=== PATIENT | male | born 1945 | race Caucasian/White ===

== ENCOUNTER 2019-01-09 03:48 | Inpatient (IN) | payer MEDICARE, OTHER ==
[2019-01-09] VITALS (15 sets, daily range): BP systolic 82–147; BP diastolic 48–74
[~2019-01-09] VITALS: Ht 185.4 cm; Wt 118.0 kg
--- NOTE | ~2019-01-09 | EKG ---
[place], [place] ELECTROCARDIOGRAM REPORT NAME: SAMIRA FERGUSON UNIT #: [id number] ROOM: [place] [address] DOCTOR: SALONI DRAFT REPORT BIRTHDATE: [birth year] [facility] Test Date: 2019-01-09 Test Time: 04:14:00 Pat Name: SAMIRA FERGUSON Department: Room: [place] [address] Gender: M Life Sciences Manager: JACQUI : 1945 Requested By: JASWANT CONTRERAS Order Number: [id number] Reading MD: Carlos Pettit Measurements Intervals [place] Rate: 108 P: 36 ME: 158 QRS: 6 QRSD: 95 T: 46 QT: 334 QTc: 448 Interpretive Statements Sinus tachycardia Baseline wander in lead(s) V2 Electronically Signed On 01-10-2019 8:52:39 PDT by Carlos Pettit CM:EKGRPT:ELECTROCARDIOGRAM REPORT [id number] JASWANT CONTRERAS MD EPIPHANY DRAFT REPORT JASWANT CONTRERAS MD
[2019-01-09] MEDS ORDERED: NORVASC5 MG PO (04:26)
[2019-01-09] MEDS ORDERED: AZOR 5-20 MG T1 EACH PO (04:26)
[2019-01-09] MEDS ORDERED: METFORMIN HYD1000 MG PO (04:27)
[2019-01-09] MEDS ORDERED: JANUVIA100 MG PO (04:27)
[2019-01-09 04:29] LABS: BASO % 0.2 % (0.0-1.0); HEMATOCRIT 42.3 % (42.0-52.0); LYMPH # 0.6 10*3/uL (1.3-4.4); LYMPH % 3.3 % (27.0-41.0); MEAN CELL VOLUME 91.4 fl (80.0-94.0); MEAN CORPUSCULAR HGB 30.2 pg (27.0-31.0); MEAN CORPUSCULAR HGB CONC 33.1 g/dl (33.0-37.0); MEAN PLATELET VOLUME 9.8 fl (9.6-12.3); MONO # 1.1 10*3/uL (0.1-1.0); NEUT % 89.9 % (47.0-73.0); PLATELET COUNT AUTOMATED 243 10*3/uL (130-400); RED BLOOD COUNT 4.63 10*6/uL (4.50-5.90); WHITE BLOOD COUNT 17.8 10*3/uL (4.8-10.8)
--- NOTE | 2019-01-09 04:30 | NUR ---
BP CYCLING EVERY 15 MINUTES. REMAINS A&O X 4 AND IS FEELING A BIT BETTER SINCE RECEIVING IV FLUIDS. OKAY FOR ICE WATER PER DR BOURGEOIS AND ICE WATER PROVIDED.
[2019-01-09 04:39] LABS: ACT PARTIAL THROMBO TIME 23.6 SECONDS (20.0-32.1)
[2019-01-09 04:44] LABS: ALBUMIN 3.2 gm/dl (3.1-4.5); ALKALINE PHOSPHATASE 105 U/L (45-117); BUN 20 mg/dl (7-24); CHLORIDE 104 mmol/L (98-107); CREATININE 1.38 mg/dL (0.70-1.30); LIPASE 67 U/L (73-393); POTASSIUM 4.7 mmol/L (3.5-5.1); SGOT/AST 15 IU/L (3-35); SGPT/ALT 10 U/L (12-78); SODIUM 137 mmol/L (136-145); TOTAL PROTEIN 6.1 gm/dL (6.4-8.2)
[2019-01-09 04:45] LABS: TROPONIN I < 0.015 ng/ml (<0.045)
--- NOTE | 2019-01-09 04:45 | NUR ---
UNABLE TO PROVIDE URINE AT THIS TIME.
--- NOTE | 2019-01-09 04:46 | NUR ---
CRITICAL LACTIC ACID 3.8, DR BOURGEOIS AWARE
--- NOTE | 2019-01-09 04:49 | NUR ---
REFUSING STRAIGHT CATH FOR URINE.
--- NOTE | 2019-01-09 05:19 | NUR ---
BLADDER SCAN REVEALED 28 ML OF URINE IN BLADDER. DR BOURGEOIS NOTIFIED.
--- NOTE | 2019-01-09 05:21 | NUR ---
RADIOLOGY HERE TO TAKE PATIENT FOR IMAGING BUT ADVISED TO WAIT UNTIL BP STABLE.
--- NOTE | 2019-01-09 05:25 | NUR ---
MANUAL BP RIGHT ARM 82/48. DR BOURGEOIS MADE AWARE ON THRID LITER OF NSS ORDERED.
--- NOTE | 2019-01-09 05:38 | NUR ---
WALLET, CREDIT CARDS, AND MONEY SECURED BY MARIBEL NURSING COAL BRIQUETTE MACHINE OPERATOR AND PLACED IN LOCK BOX PER PATIENT REQUEST. REMAINDER OF BELONGINGS INCLUDING SHORTS, T-SHIRT, A FEW LOOSE NICKELS, KEYS, HOTEL RENDON CARD, KEYS, HAT, AND SHOES PLACED IN BELONGINGS BAG AND LABELED.
--- NOTE | 2019-01-09 05:40 | NUR ---
BP VERIFIED WITH MANUAL AND IS 92/52 IN RIGHT ARM MANUALLY AND 93/55 ON AUTO CUFF.
--- NOTE | 2019-01-09 05:45 | NUR ---
UPDATED RADIOLOGY THAT PATIENT CAN GO FOR CT.
--- NOTE | 2019-01-09 05:47 | NUR ---
LEVOPHED ON STAND BY PER DR BOURGEOIS.
--- NOTE | 2019-01-09 05:55 | NUR ---
IV FLUID ORDER VERIFIED WITH DR BOURGEOIS. PATIENT IS ONLY TO HAVE 3L OF NSS.
--- NOTE | 2019-01-09 05:58 | NUR ---
ESCORTED TO CT VIA STRETCHER.
--- NOTE | 2019-01-09 06:28 | NUR ---
VERBAL ORDER GIVEN TO INFUSE 4TH L OF NSS
--- NOTE | 2019-01-09 06:38 | NUR ---
MARY CASTILLO FROM PHARMACY.
--- NOTE | 2019-01-09 06:40 | NUR ---
UPDATED ON PLAN FOR ADMISSION AND REMAINS AT BASELINE MENTATION. OTHER THAN BP AND IMPROVED HR, ASSESSMENT REMAINS AT BASELINE.
--- NOTE | 2019-01-09 06:41 | NUR ---
STILL UNABLE TO PROVIDE URINE AND IS REFUSING STRAIGHT CATH.
--- NOTE | 2019-01-09 06:49 | NUR ---
UPDATED ON ADMISSION TO ICCU AND DENIES ANY NEEDS.
--- NOTE | 2019-01-09 07:02 | NUR ---
SPOKE WITH WILLIAM IN PHARMACY REGARDING NEED FOR ZOSYN DOSE. WILL SEND.
--- NOTE | 2019-01-09 07:16 | NUR ---
NURSE TO NURSE TO ICU. NURSE TO NURSE GIVEN TO JACK IN ED.
--- NOTE | 2019-01-09 07:20 | NUR ---
REPORT FROM LAKSHMI PATEL. REPORT HAS BEEN CALLED TO THE ICU PER LAKSHMI PATEL. THE PATIENT CAN BE TRANSPORTED TO ICU IONCE ZOSYN ARRIVES FROM PHARMACY AND THIS MEDICATION IS STARTED. AT THIS TIME PT IS SLEEPING RESP EASY AND REGULAR. MONITOR SHOWING SINUS RHYTHM IV INFUSING AT 150/HR. JACK PORTILLO RN.
--- NOTE | 2019-01-09 07:55 | NUR ---
A 73, admitted to ICCU, under the services of DULCE Carpenter DO with a diagnosis of SEVERE SEPSIS AND HTN. Chief complaint is LIGHTHEADED AND DIZZY. Patient arrived via stretcher from ER. Monitor applied. Initial assessment completed. Vital signs taken and recorded. DULCE CARPENTER DO notified of admission to the unit. Orders received. See assessment for past medical history, medications and allergies. Patient and/or family oriented to unit. [facility]U visitation policy reviewed. Clothing/patient valuable form completed. MARGARITA LI
[2019-01-09] MEDS ORDERED: ZESTRIL20 MG PO (08:34)
[2019-01-09] MEDS ORDERED: MULTI-VITAMIN1 EACH PO (08:35)
[2019-01-09] MEDS ORDERED: ATENOLOL25 MG PO (08:39)
--- NOTE | 2019-01-09 09:15 | NUR ---
NOTIFIED OF NEEDING WOUND CARE ORDERS.
[2019-01-09 10:19] LABS: BILIRUBIN NEGATIVE (NEGATIVE); BLOOD NEGATIVE (NEGATIVE); CLARITY SL CLOUDY (CLEAR); COLOR YELLOW (YELLOW); GLUCOSE 3+ (NEGATIVE); KETONE NEGATIVE (NEGATIVE); LEUKO ESTERASE NEGATIVE (NEGATIVE); NITRITE NEGATIVE (NEGATIVE); PH 5.5 (5.0-9.0); UROBILINOGEN 0.2 E.U./dl (0.2-1.0)
[2019-01-09 10:44] LABS: BACTERIA 2+; HYALINE CAST TNTC; MUCOUS 1+; YEAST 1+
--- NOTE | 2019-01-09 12:09 | NUR ---
PODIATRY HERE TO APPLY WOUND DRESSINGS.
--- NOTE | 2019-01-09 23:51 | NUR ---
PATIENT IS RESTING IN BED WITH EASY AND REGULAR RESPERS ON ROOM AIR. ASSESSMENT IS COMPLETE WITH NO C/O OR S/S OF DISTRESS NOTED AT THIS TIME. BED IS LOW, LOCKED, AND CALL LIGHT IS WITHIN REACH. DRESSING TO RIGHT FOOT CHANGED. VITALS OBTAINED AND STABLE. WILL CONTINUE TO MONITOR SEE SHIFT ASSESSMENT.
[2019-01-10] VITALS: BP 144/76
--- NOTE | 2019-01-10 01:38 | NUR ---
24 HR. CHART CHECK COMPLETE.
[2019-01-10 04:00] VITALS: BP 138/66
[2019-01-10 04:51] LABS: BASO % 0.3 % (0.0-1.0); EOS # 0.2 10*3/uL (0.0-0.4); EOS % 1.5 % (1.0-4.0); HEMOGLOBIN 12.8 g/dl (14.0-18.0); LYMPH # 1.6 10*3/uL (1.3-4.4); LYMPH % 15.4 % (27.0-41.0); MEAN CELL VOLUME 91.5 fl (80.0-94.0); MEAN CORPUSCULAR HGB CONC 32.8 g/dl (33.0-37.0); MEAN PLATELET VOLUME 9.2 fl (9.6-12.3); MONO # 0.8 10*3/uL (0.1-1.0); MONO % 7.5 % (3.0-9.0); NEUT % 74.8 % (47.0-73.0); PLATELET COUNT AUTOMATED 192 10*3/uL (130-400); RED BLOOD COUNT 4.26 10*6/uL (4.50-5.90); RED CELL DISTRI WIDTH 14.1 % (0-14.5); WHITE BLOOD COUNT 10.6 10*3/uL (4.8-10.8)
[2019-01-10 05:05] LABS: ACT PARTIAL THROMBO TIME 29.9 SECONDS (20.0-32.1)
[2019-01-10 05:06] LABS: ALBUMIN 2.8 gm/dl (3.1-4.5); ALKALINE PHOSPHATASE 76 U/L (45-117); BUN 12 mg/dl (7-24); CHLORIDE 111 mmol/L (98-107); CHOLESTEROL 95 mg/dL (<200); CREATININE 0.75 mg/dL (0.70-1.30); HDL CHOLESTEROL 38 mg/dl (40-60); LDL CHOLESTEROL 39 mg/dL (9-159); PHOSPHOROUS 1.4 mg/dL (2.5-4.9); SGOT/AST 11 IU/L (3-35); SGPT/ALT 8 U/L (12-78); TRIGLYCERIDES 90 mg/dl (<150); VLDL CHOLESTEROL 18 mg/dL (6-40)
[2019-01-10 05:20] LABS: SODIUM 141 mmol/L (136-145)
[2019-01-10 05:37] LABS: POTASSIUM 3.7 mmol/L (3.5-5.1)
[2019-01-10 08:00] VITALS: BP 149/61
[2019-01-10 08:29] LABS: VITAMIN D, 25-HYDROXY 17.9 ng/mL (30-100)
--- NOTE | 2019-01-10 11:15 | NUR ---
PHYSICAL THERAPY PT EVAL COMPLETED TODAY IN ICCU; FULL EVALUATION TO FOLLOW; RECOMMEND PT WHILE HERE TO ADDRESS DECREASED FUNCTIONAL MOBILITY; PT EVAL IS MODERATE COMPLEXITY BASED ON CHART REVIEW, TEST RESULSTS AND EVAL: [id number]. D/C RECOMMENDATIONS ARE HOME WHEN MEDICALLY STABLE WITH HOME HEALTH SERVICES. THANK YOU FOR REFERRAL KATHLEEN MARIE PT
[2019-01-10 12:00] VITALS: BP 149/68
--- NOTE | 2019-01-10 13:10 | NUR ---
PODIATRY HERE AND DEBRIDED RT BALL FOOT AT BEDSIDE
[2019-01-10 16:00] VITALS: BP 133/64
--- NOTE | 2019-01-10 16:38 | NUR ---
BSG 217. PT REFUSES INSULIN PER S/S. WILL CONTINUE TO MONITOR. NO VOICED COMPLAINTS.
[2019-01-10 20:00] VITALS: BP 156/90
[2019-01-11] VITALS: BP 171/83
--- NOTE | 2019-01-11 00:53 | NUR ---
IV OUT. NEW 22G INSERTED INTO RIGHT WRIST ON FIRST ATTEMPT WITHOUT DIFFICULTY. PATIENT TOLERATED WELL. CALL LIGHT IN REACH.
[2019-01-11 06:15] LABS: BASO % 0.5 % (0.0-1.0); EOS # 0.2 10*3/uL (0.0-0.4); HEMATOCRIT 42.1 % (42.0-52.0); HEMOGLOBIN 13.8 g/dl (14.0-18.0); LYMPH # 1.3 10*3/uL (1.3-4.4); LYMPH % 16.9 % (27.0-41.0); MEAN CELL VOLUME 92.3 fl (80.0-94.0); MEAN CORPUSCULAR HGB 30.3 pg (27.0-31.0); MEAN CORPUSCULAR HGB CONC 32.8 g/dl (33.0-37.0); MEAN PLATELET VOLUME 9.2 fl (9.6-12.3); MONO # 0.6 10*3/uL (0.1-1.0); MONO % 8.6 % (3.0-9.0); NEUT # 5.4 10*3/uL (2.3-7.9); NEUT % 71.6 % (47.0-73.0); PLATELET COUNT AUTOMATED 188 10*3/uL (130-400); RED BLOOD COUNT 4.56 10*6/uL (4.50-5.90); RED CELL DISTRI WIDTH 13.9 % (0-14.5); WHITE BLOOD COUNT 7.5 10*3/uL (4.8-10.8)
[2019-01-11 06:50] LABS: BUN 6 mg/dl (7-24); CHLORIDE 109 mmol/L (98-107); CREATININE 0.64 mg/dL (0.70-1.30); POTASSIUM 3.6 mmol/L (3.5-5.1); SODIUM 142 mmol/L (136-145)
--- NOTE | 2019-01-11 08:00 | NUR ---
Patient resting quietly with no c/o discomfort. Respirations easy and regular. Vital signs stable. No overt distress. HARRY MISTRY R
--- NOTE | 2019-01-11 08:32 | NUR ---
Spoke with Dr. Singleton regarding wound care orders he stated betadine daily.
--- NOTE | 2019-01-11 08:54 | NUR ---
SAMIRA FERGUSON [id number] Please refer to the physician's history and physical for past medical history, comorbid conditions, and allergies. Diagnosis: SEVERE SEPSIS Barron Score: 23,LOW OR NO RISK WOUND DESCRIPTIONS: Wound Number: 1 Location of the wound: right plantar aspect of right great toe Type of wound: stage 2 Thickness: Partial Size: 0.6cm x 1.2cm x 0.1cm Tunneling: none Undermining: none Sinus Tract: none Presence of Exudate: Serous Amount: Light Color: Red Odor: None Periwound Skin Appearance: callus Wound edges: approximated Pain (associated with wound): none at time of assessment How does patient state this happened? pt stated he has had these for years and follows with a retarder operator in [place] he is just up here visiting his Wound Number: 2 Location of the wound: left 2nd toe Type of wound: unstageable Thickness: Full Size: 0.5cm x 1.2cm x 0.1cm Tunneling: none Undermining: none Sinus Tract: none Presence of Exudate: Serous Amount: Light Color: Red, yellow, brown Odor: None Periwound Skin Appearance: callus Wound edges: approximated Pain (associated with wound): none at time of assessment How does patient state this happened? pt stated he has had these for years and follows with a retarder operator in [place] he is just up here visiting his Surface the patient is resting on: Isoflex SKIN PREVENTION RECOMMENDATION: 1. Pressure redistribution support surface as appropriate 2. Elevate heels 3. Remove boots/TEDS every shift and reapply 4. Head of bed 30 degrees as tolerated 5. Assess nutrition and hydration 6. Manage moisture 7. Avoid the use of containment devices while in bed 8. Use absorptive products on surfaces limit layers of linens on bed 9. Turn and reposition every 1-2 hours in bed and every 1 hour in chair as tolerated 10. Weight shifts every 15 minutes while up in chair 11. Offloading with pillows or device to keep heels elevated off bed 12. Monitor skin at least every shift 13. Inspect under medical devices twice a day WOUND TREATMENT RECOMMENDATIONS: Continue current orders per podiatry. Patient stated he will follow with Dr. Ward in the office on friday then upon his return her will follow with his physicians in [place]. Heel raiser pro boots to bilateral lower extremities while in bed.
--- NOTE | 2019-01-11 09:21 | NUR ---
Dr. Nogueira notified of wound care recommendations.
--- NOTE | 2019-01-11 09:30 | NUR ---
Irrigation Equipment Mechanic in to talk to patient. Patient states lives at home with alone. There are few steps in the home. Physician: out of state doctor Pharmacy: out of state pharmacy Home health services: none Patient's level of ADLs: INDEPENDENT Patient has working utilities: all working DME: none Follow-up physician's appointment after d/c: will be made by hospitalist nurse director upon discharge Does patient want to access PORTAL?: no Discharge plan discussed with patient, he is independent in adls and ambulation, drives, lives at home in [place] alone, patient stated his is a resident of [facility] and he flies here to see her every couple of weeks, patient states he has a cyber systems operations specialist and a general doctor in [place] he follows up with on a regular basis. he states he will be returning home when medically stable, case management will follow for any needs. LUNA FERRO
--- NOTE | 2019-01-11 09:51 | NUR ---
Occupational Therapy eval complete on 4 with full eval to follow. Precautions include IV UE, fall risk, and bed alarm, low complexity level 90135 via chart review, testing, and eval. Patient is independent in functional mobility with no equipment, lower body dressing, and reports he is independent in grooming, and toileting. No further OT needs are indicated at this time. Recommend he return home upon discharge with home health OT; for home safety evaluation, PT and SN. Thank you for this referral. Refugio Bo S/OT Danisha Davis OTR/L
--- NOTE | 2019-01-11 09:55 | NUR ---
PHYSICAL THERAPY Patient seen this am 1:1 for therapy visit and was sitting up in bedside chair with continuous IV treatment. Patient presnets with mild B LE edema and was just seen by Supervisor Coin Machine upon therapist arrival. Patient instructed on and performed seated B LE therex, all planes, x 20 reps each to increase LE strength, followed by multiple sit to stand transfers, CGA, demonstrating mild fatigue and slow rise. Patient also demonstrated several bouts of increased confusion and needed v/c to focus on task in completing all treatment this session. Patient remained in bedside chair with call light, tray table and telephone. Will continue per POC as tolerated, total treatment time 16 minutes. Vijay Gleason, PATIENT ACCOUNT LIAISON
[2019-01-11] MEDS ORDERED: VITAMIN D32000 UNI1 PO (11:30)
[2019-01-11] MEDS ORDERED: DOXYCYCLINE100 M3 PO (11:30)
[2019-01-11 12:00] VITALS: BP 147/80
--- NOTE | 2019-01-11 12:22 | NUR ---
DISCHARGE WOUND PHOTOS TAKEN.
--- NOTE | 2019-01-11 14:50 | NUR ---
DR BONILLA CALLED RE: OK FOR PT TO LEAVE DISCHARGE IS IN BUT ARTERIAL ULTRASOUND OF BILATERAL LOWER EXTERMITIES R/T WOUNDS ON BILAT FEET ISN'T READ YET. HE STATES OK TO GO. IF ABNORMAL WE WILL NOTIFY PT.
--- NOTE | 2019-01-11 15:28 | NUR ---
PHYSICAL THERAPY CO-SIGN I approve of the Physical Therapy notes written above. JUAN HINOJOSA PT,DPT
--- NOTE | 2019-01-11 16:02 | NUR ---
Discharge instructions reviewed with patient/family. Patient receptive and verbalizes understanding. Follow-up care arranged. Written instructions given to patient/family. HARRY MISTRY
== END 2019-01-11 16:02 | disposition home or self-care (01) | DRG 853 ==
LOC: ED 03:48 → 4E 06:26 → EDHOLD 06:26 → ICCU 06:36 → 4E 01-10 14:42
PROVIDERS: Emergency Medicine Emergency Medical Services; Student in an Organized Health Care Education/Training Program; ADMIT Family Medicine
DX: A41.9 Sepsis, unspecified organism (principal); N17.0 Acute kidney failure with tubular necrosis; J18.1 Lobar pneumonia, unspecified organism; R17 Unspecified jaundice; J98.11 Atelectasis; J21.9 Acute bronchiolitis, unspecified; E87.2 Acidosis; E11.51 Type 2 diabetes mellitus with diabetic peripheral angiopathy without gangrene; L97.529 Non-pressure chronic ulcer of other part of left foot with unspecified severity; E11.42 Type 2 diabetes mellitus with diabetic polyneuropathy; E86.0 Dehydration; S90.811A Abrasion, right foot, initial encounter; R65.20 Severe sepsis without septic shock; E11.65 Type 2 diabetes mellitus with hyperglycemia; L97.519 Non-pressure chronic ulcer of other part of right foot with unspecified severity; R79.82 Elevated C-reactive protein (CRP); I10 Essential (primary) hypertension; E78.00 Pure hypercholesterolemia, unspecified; E11.621 Type 2 diabetes mellitus with foot ulcer; S90.812A Abrasion, left foot, initial encounter; X58.XXXA Exposure to other specified factors, initial encounter; Y93.89 Activity, other specified; Y92.89 Other specified places as the place of occurrence of the external cause; Y99.8 Other external cause status; Z89.422 Acquired absence of other left toe(s); Z79.899 Other long term (current) drug therapy; Z84.89 Family history of other specified conditions; Z22.322 Carrier or suspected carrier of Methicillin resistant Staphylococcus aureus

== ENCOUNTER 2019-11-18 22:46 | Emergency (ER) | payer MEDICARE, OTHER ==
[~2019-11-18] VITALS: Ht 187.9 cm; Wt 100.7 kg
[~2019-11-18 22:46] MED LIST: ATENOLOL25 MG PO; AZOR 5-20 MG T1 EACH PO; DOXYCYCLINE100 M3 PO; JANUVIA100 MG PO; METFORMIN HYD1000 MG PO; MULTI-VITAMIN1 EACH PO; NORVASC5 MG PO; VITAMIN D32000 UNI1 PO; ZESTRIL20 MG PO
[2019-11-18 23:07] VITALS: BP 154/89
== END 2019-11-19 00:34 | disposition home or self-care (01) ==
LOC: ED 22:46
DX: S00.83XA Contusion of other part of head, initial encounter (principal); E11.9 Type 2 diabetes mellitus without complications; E78.00 Pure hypercholesterolemia, unspecified; I10 Essential (primary) hypertension; Z79.899 Other long term (current) drug therapy; W18.39XA Other fall on same level, initial encounter; Y93.89 Activity, other specified; Y92.89 Other specified places as the place of occurrence of the external cause; Y99.8 Other external cause status